=== PATIENT | female | born 1970 | race Two or more races ===

== ENCOUNTER → 2018-02-22 | Emergency (ER) | payer OTHER ==
[~2018-02-22] VITALS: Ht 172.7 cm; Wt 71.7 kg
[~2018-02-22] MED LIST: ATARAX25 MG PO; PHENAGIL CH TA1 EACH PO; ZYRTEC10 M3 PO
== END | disposition home or self-care (01) ==
LOC: ER 21:19
DX: J32.8 Other chronic sinusitis (principal); J11.1 Influenza due to unidentified influenza virus with other respiratory manifestations

== ENCOUNTER 2020-09-25 09:55 | Outpatient (CLI) | payer OTHER ==
[~2020-09-25 09:55] MED LIST changes: +PREDNISOLONE SO10 ML; +ZYRTEC10 M3
== END 2020-09-25 15:00 | disposition home or self-care (01) ==
LOC: LAB 09:55
PROVIDERS: ATTEND Orthopaedic Surgery
DX: I10 Essential (primary) hypertension (principal); Z20.828 Contact with and (suspected) exposure to other viral communicable diseases

== ENCOUNTER 2020-09-26 06:33 | Day surgery (SDC) | payer OTHER | END 2020-09-26 13:30 | disposition home or self-care (01) | LOC: CIR.AMB 06:33 | PROVIDERS: ATTEND Orthopaedic Surgery | DX: M77.11 Lateral epicondylitis, right elbow (principal); Z20.828 Contact with and (suspected) exposure to other viral communicable diseases ==